=== PATIENT | male | born 1965 | race Caucasian/White ===

== ENCOUNTER 2020-09-17 10:17 | Outpatient (REF) | payer OTHER, SELFPAY ==
[2020-09-17 11:35] LABS: MANUAL DIFF FLAG NO
[2020-09-17 11:44] LABS: Basophils Percent Auto 0.5 % (0-2); Eosinophils Absolute Auto 0.2 X10*3/uL (0.0-0.4); Eosinophils Percent Auto 3.5 % (0-4); Hematocrit 43.3 % (42-52); Hemoglobin 14.7 g/dl (14.0-18.0); Imm Gran Abs Auto 0.02 X10*3/uL (0.00-0.03); Imm Gran Pct Auto 0.3 % (0.0-0.4); Lymphocytes Absolute Auto 1.6 X10*3/uL (1.2-4.9); Lymphocytes Percent Auto 26.6 % (20-40); Mean Corpuscular HGB Conc 33.9 g/dl (31.0-36.0); Mean Corpuscular Hemoglobin 30.4 pg (27.0-33.0); Mean Corpuscular Volume 89.6 fL (80-98); Mean Platelet Volume 10.3 fL (9.4-12.4); Monocytes Absolute Auto 0.4 X10*3/uL (0.1-1.2); Monocytes Percent Auto 6.9 % (2-11); Neutrophils Absolute Auto 3.7 X10*3/uL (2.0-8.3); Neutrophils Percent Auto 62.2 % (45-73); Platelet Count 299 X10*3/uL (160-400); Red Blood Count 4.83 X10*6/uL (4.60-5.80); Red Cell Distribution Width 12.2 % (11.0-16.0)
[2020-09-17 12:10] LABS: Alanine Aminotransferase 23 U/L (0-40); Albumin Level 4.2 g/dL (3.5-5.0); Alkaline Phosphatase 74 U/L (39-117); Anion Gap 13 (12-20); Aspartate Amino Transferase 19 U/L (5-37); Bilirubin Total 0.8 mg/dL (0.0-1.0); Blood Urea Nitrogen 14 mg/dL (9-16); Calcium 9.4 mg/dL (8.4-10.2); Carbon Dioxide 25 mmol/L (22-29); Chloride 107 mmol/L (96-108); Cholesterol 247 mg/dL; Estimated Glomerular Filt Rate > 60; Glucose Fasting 91 mg/dL (60-99); HDL Cholesterol 49 mg/dL; LDL Cholesterol Calculated 182 mg/dl; Potassium 5.2 mmol/L (3.3-5.1); Sodium 140 mmol/L (135-145); Total Protein 6.5 g/dL (6.5-8.0); Triglycerides 84 mg/dL
[2020-09-17 12:15] LABS: Thyroid Stimulating Hormone 0.71 uIU/mL (0.32-4.0)
== END 2020-09-17 10:18 | disposition home or self-care (01) ==
LOC: HO.HMGCLDS 10:17
PROVIDERS: PCP Internal Medicine; Visit Provider Internal Medicine
DX: Z00.00 Encounter for general adult medical examination without abnormal findings (principal); E11.9 Type 2 diabetes mellitus without complications; E03.9 Hypothyroidism, unspecified
CPT/HCPCS: 36415; 80053; 80061; 84443; 85025

== ENCOUNTER 2021-08-21 08:50 | Outpatient (REF) | payer OTHER, SELFPAY ==
[2021-08-21 09:06] LABS: MANUAL DIFF FLAG NO
[2021-08-21 09:22] LABS: Basophils Percent Auto 0.3 % (0-2); Eosinophils Absolute Auto 0.1 X10*3/uL (0.0-0.4); Eosinophils Percent Auto 1.6 % (0-4); Hematocrit 43.8 % (42.0-52.0); Hemoglobin 14.7 g/dl (14.0-18.0); Imm Gran Abs Auto 0.03 X10*3/uL (0.00-0.03); Imm Gran Pct Auto 0.4 % (0.0-0.4); Lymphocytes Absolute Auto 1.6 X10*3/uL (1.2-4.9); Lymphocytes Percent Auto 22.5 % (20-40); Mean Corpuscular HGB Conc 33.6 g/dl (31.0-36.0); Mean Corpuscular Hemoglobin 30.4 pg (27.0-33.0); Mean Corpuscular Volume 90.5 fL (80.0-98.0); Monocytes Absolute Auto 0.4 X10*3/uL (0.1-1.2); Monocytes Percent Auto 6.3 % (2-11); Neutrophils Absolute Auto 4.8 x10*3/uL (2.0-8.3); Neutrophils Percent Auto 68.9 % (45-73); Platelet Count 284 X10*3/uL (160-400); Red Blood Count 4.84 X10*6/uL (4.60-5.80); Red Cell Distribution Width 12.2 % (11.0-16.0)
[2021-08-21 09:48] LABS: Alanine Aminotransferase 22 U/L (0-40); Albumin Level 4.1 g/dL (3.5-5.0); Alkaline Phosphatase 50 U/L (39-117); Anion Gap 12 (12-20); Aspartate Amino Transferase 13 U/L (5-37); Bilirubin Total 0.5 mg/dL (0.0-1.0); Blood Urea Nitrogen 17 mg/dL (9-16); Calcium 9.4 mg/dL (8.4-10.2); Carbon Dioxide 27 mmol/L (22-29); Chloride 105 mmol/L (96-108); Cholesterol 229 mg/dL; Estimated Glomerular Filt Rate > 60; Glucose Fasting 93 mg/dL (60-99); HDL Cholesterol 57 mg/dL; LDL Cholesterol Calculated 154 mg/dl; Potassium 4.2 mmol/L (3.3-5.1); Sodium 140 mmol/L (135-145); Total Protein 6.4 g/dL (6.5-8.0); Triglycerides 94 mg/dL
== END 2021-08-21 08:51 | disposition home or self-care (01) ==
LOC: HO.LAB 08:50
PROVIDERS: PCP Internal Medicine; Visit Provider Internal Medicine
DX: Z00.00 Encounter for general adult medical examination without abnormal findings (principal); Z13.0 Encounter for screening for diseases of the blood and blood-forming organs and certain disorders involving the immune mechanism
CPT/HCPCS: 36415; 80053; 80061; 85025

== ENCOUNTER 2022-11-12 15:23 | Outpatient (REF) | payer BC, SELFPAY | END 2022-11-12 15:24 | disposition home or self-care (01) | LOC: HO.SH 15:23 | PROVIDERS: Visit Provider Internal Medicine | DX: Z01.118 Encounter for examination of ears and hearing with other abnormal findings (principal); H90.3 Sensorineural hearing loss, bilateral | CPT/HCPCS: 92557 ==

== ENCOUNTER 2023-03-26 11:40 | Outpatient (REF) | payer BC, SELFPAY ==
[2023-03-26 11:48] LABS: MANUAL DIFF FLAG NO
[2023-03-26 12:10] LABS: Basophils Absolute Auto 0.1 X10*3/uL (0.0-0.2); Basophils Percent Auto 0.8 % (0-2); Eosinophils Absolute Auto 0.6 X10*3/uL (0.0-0.4); Eosinophils Percent Auto 7.8 % (0-4); Hemoglobin 15.8 g/dl (14.0-18.0); Imm Gran Abs Auto 0.02 X10*3/uL (0.00-0.03); Imm Gran Pct Auto 0.3 % (0.0-0.4); Lymphocytes Absolute Auto 1.6 X10*3/uL (1.2-4.9); Lymphocytes Percent Auto 21.1 % (20-40); Mean Corpuscular HGB Conc 34.3 g/dl (31.0-36.0); Mean Corpuscular Hemoglobin 30.7 pg (27.0-33.0); Mean Corpuscular Volume 89.3 fL (80.0-98.0); Mean Platelet Volume 10.3 fL (9.4-12.4); Monocytes Absolute Auto 0.5 X10*3/uL (0.1-1.2); Monocytes Percent Auto 6.8 % (2-11); Neutrophils Absolute Auto 4.6 x10*3/uL (2.0-8.3); Neutrophils Percent Auto 63.2 % (45-73); Platelet Count 287 X10*3/uL (160-400); Red Blood Count 5.15 X10*6/uL (4.60-5.80); Red Cell Distribution Width 12.1 % (11.0-16.0); White Blood Count 7.3 X10*3/uL (4.8-10.8)
[2023-03-26 12:49] LABS: Alanine Aminotransferase 30 U/L (0-40); Albumin Level 4.3 g/dL (3.5-5.0); Alkaline Phosphatase 70 U/L (39-117); Anion Gap 12 (12-20); Aspartate Amino Transferase 22 U/L (5-37); Bilirubin Total 0.8 mg/dL (0.0-1.0); Blood Urea Nitrogen 16 mg/dL (9-16); Calcium 9.4 mg/dL (8.4-10.2); Carbon Dioxide 27 mmol/L (22-29); Chloride 105 mmol/L (96-108); Cholesterol 289 mg/dL (<200); Estimated Glomerular Filt Rate > 60; Glucose Fasting 96 mg/dL (60-99); HDL Cholesterol 60 mg/dL (>40); LDL Cholesterol Calculated 198 mg/dL (<100); Potassium 4.7 mmol/L (3.3-5.1); Sodium 139 mmol/L (135-145); Total Protein 7.3 g/dL (6.5-8.0); Triglycerides 158 mg/dL (<150)
[2023-03-26 13:07] LABS: Thyroid Stimulating Hormone 1.01 uIU/mL (0.32-4.0)
== END 2023-03-26 11:41 | disposition home or self-care (01) ==
LOC: HO.LAB 11:40
PROVIDERS: PCP Internal Medicine; Visit Provider Internal Medicine
DX: E03.9 Hypothyroidism, unspecified (principal); N28.9 Disorder of kidney and ureter, unspecified; D64.9 Anemia, unspecified; E78.5 Hyperlipidemia, unspecified
CPT/HCPCS: 36415; 80053; 80061; 84443; 85025

== ENCOUNTER 2023-12-24 13:01 | Outpatient (AMB) | payer BC, SELFPAY ==
[2023-12-24 13:03] VITALS: BP 148/88; PULSE 89; O2SAT 94; BMI 32.0
--- NOTE | 2023-12-24 13:03 | A.OFFPC_ITS ---
Vital Signs 12/24/23 13:03 Height 5 ft 9 in Weight 217 lb BMI 32.0 BP 148/88 H Blood Pressure Location Lt brachial Position Sitting Pulse 89 Pulse Source Pulse Oximeter Pulse Oximetry (%) 94 Oxygen Delivery Method Room Air Intake Visit Reasons: annual exam/ high bp Assurance Associate Required: No Accompanied by: Self / Same As Patient Allergies No Known Allergies Allergy (Verified 12/24/23 13:04) Medication List - Last Reconciled 12/24/23 by Kt Cardoza MD prednisolone acetate 1% 1 drp ophthalmic-Right Q2H Tobacco use date assessed: 12/24/23 Dental Screening Dental Screen Date: 12/24/23 Did you have a dental visit in the last 12 months?: No Did you have a dental problem in the last 6 months where you did not have access to dental care?: No Was dental information given to patient?: Patient has dentist HPI annual exam/ high bp HPI Details elevated BP PFSH Medical History (Updated 12/24/23 @ 13:24 by Kt Cardoza MD) Obesity Surgical History (Updated 08/26/21 @ 14:22 by ALEX Dawson) History of hernia surgery History of eye surgery Family History (Updated 08/26/21 @ 14:15 by ALEX Dawson) Father Colon cancer Mother No problems noted. Social History Housing: House Alcohol intake: current Alcohol intake frequency: a few times a week Alcohol type: beer Patient Tobacco Use Status: Never used Tobacco Tobacco use type: Cigarette e-Cigarette/Vaping Use: Never Used Second Hand Smoke Exposure: No service: No Current occupational status: employed Cognitive needs: No Hearing needs: No Vision needs: No Questionnaire PHQ-9 Over the last 2 weeks, how often have you been bothered by any of the following problems? 1. Little interest or pleasure in doing things: not at all 2. Feeling down, depressed, or hopeless: not at all 3. Trouble falling or staying asleep, or sleeping too much: not at all 4. Feeling tired or having little energy: several days 5. Poor appetite or overeating: not at all 6. Feeling bad about yourself - or that you are a failure or have let yourself or your family down: not at all 7. Trouble concentrating on things, such as reading the newspaper or watching television: not at all 8. Moving or speaking so slowly that other people could have noticed. Or the op posite - being so fidgety or restless that you have been moving around a lot more than usual: not at all 9. Thoughts that you would be better off or of hurting yourself in some way: not at all Total score: 1 Source: Developed by Drs. Elias Sarabia, Dania Elam, Saurabh Granados and colleagues, with an educational jose from [employer]. Thrive Questionnaire Date Thrive assessed: 12/24/23 I am a: Patient What is your living situation today?: I have a steady place to live Within the past 12 months, did the food you bought not last and you didn't have the money to get more?: Never true Within the past 12 months, did you worry whether your food would run out before you got money to buy more?: Never true Do you have trouble paying for medicines?: No Do you have trouble getting transportation to medical appointments?: No Do you have trouble paying your heating and electricity bill?: No Do you have trouble taking care of your child, family member or friend?: No Do you have trouble with day-to-day activities such as bathing, preparing meals, shopping, managing finances, etc.?: No Are you currently unemployed and looking for a job?: No Are you interested in more education?: No Please select the resources that you would like help with: None Currently or been in a relationship where the following occur: No concerns reported THRIVE Score: 0 AUDIT C Alcohol Use Questionnaire (AUDIT-C) 1. How often do you have a drink containing alcohol?: 2-3 times a week 2. How many drinks containing alcohol do you have on a typical day when you are drinking?: 1 or 2 3. How often do you have six or more drinks on one occasion?: Never Total Score: 3 ROCK-7 AMB Questionnaire ROCK-7 Date ROCK - 7 assessed: 12/24/23 Feeling nervous, anxious, or on edge: 0 = Not at all Not being able to stop or control worryin = Not at all Worrying too much about different things: 0 = Not at all Trouble relaxin = Not at all Being so restless that it is hard to sit still: 0 = Not at all Becoming easily annoyed or irritable: 0 = Not at all Feeling afraid as if something awful might happen: 0 = Not at all Total ROCK-7 score (0-4 normal; 5-9 mild; 10-14 moderate; 15-21 severe): 0 Source: Developed by Drs. Elias Sarabia, Dania Elam, Saurabh Granados and colleagues, with an educational jose from [employer]. Review of Systems Const Denies chills, Denies fatigue, Denies headache(s) and Denies weight loss Eyes Denies change in vision, Denies diplopia and Denies eye pain ENT Denies vertigo, Denies dizziness, Denies headache(s) and Denies nasal discharge Card Denies chest pain, Denies rapid heart rate and Denies dyspnea on exertion Resp Denies chest congestion, Denies cough, Denies pain with cough and Denies dyspnea on exertion GI Denies abdominal pain, Denies hematochezia and Denies change in bowel habits Musc Denies myalgias, Denies arthralgias and Denies joint swelling Skin/Breast Denies lesions and Denies unusual bruising Neuro Denies vertigo, Denies dizziness, Denies headache(s) and Denies focal weakness Endo Denies fatigue Physical exam (Primary Care) Vital Signs: Last Vital Signs Pulse 89 12/24/23 13:03 BP 148/88 H 12/24/23 13:03 Pulse Ox 94 12/24/23 13:03 Oxygen Delivery Method Room Air 12/24/23 13:03 BMI result Body Mass Index 32.0 Tobacco/Smoking Status: Tobacco use Status Tobacco use date assessed 12/24/23 12/24/23 13:08 Patient Tobacco Use Status Never used Tobacco 12/24/23 13:08 Tobacco use type Cigarette 12/24/23 13:08 e-Cigarette/Vaping Use Never Used 12/24/23 13:08 PHQ-9: PHQ-9 Score PHQ-9: Total score 1 12/24/23 13:09 Thrive Assessment: Date of Thrive Assessment Date Thrive assessed 12/24/23 12/24/23 13:08 Currently or been in a relationship where the following occur: No concerns reported Const General: cooperative, healthy appearing and no acute distress Orientation/consciousness: oriented to person, oriented to place and oriented to time HENMT Head: Yes normal to inspection, Yes normocephalic and Yes atraumatic Mouth: Normal oral and palatal mucosa present and tongue normal Throat: Yes posterior oropharynx normal and Yes uvula midline Eyes General: appearance normal, both eyes and all related structures Neck Neck: Yes normal visual inspection, Yes full ROM and Yes no lymphadenopathy Thyroid: Thyroid normal Carotids: normal carotid upstroke Chest Chest palpation & inspection: normal inspection of the chest Resp Effort & Inspection: normal respiratory effort and able to speak in complete sentences Auscultation: clear to auscultation bilaterally Cardio Jugular venous distension: no JVD Palpation: normal PMI Rate: regular rate Rhythm: regular rhythm Heart sounds: S1 normal heart sound present and S2 normal heart sound present GI Inspection: Yes normal to inspection Palpation (GI): Soft to palpation and No hepatosplenomegaly present Auscultation: normal bowel sounds General: Yes no CVA tenderness Back/Spine/Pelvis Back: no CVA tenderness Skin General skin exam: no rashes or lesions noted Neuro General: oriented to person, oriented to place and oriented to time Extrem General: Yes normal to inspection and Yes full ROM Assessment and Plan Assessment & Plan (1) Physical exam: Code(s): Z00.00 - Encounter for general adult medical examination without abnormal findings Plan: labs (2) Elevated BP without diagnosis of hypertension: Code(s): R03.0 - Elevated blood-pressure reading, without diagnosis of hypertension Plan: low Na diet; rto 2 months Orders: Orders Lipid Panel Today Z13.220 - Encounter for screening for lipoid disorders Thyroid Stimulating Hormone Today Z13.29 - Encounter for screening for other suspected endocrine disorder Complete Blood Count Auto Diff Today Z13.0 - Encounter for screening for diseases of the blood and blood-forming organs and certain disorders involving the immune mechanism Comprehensive [place]. Panel Fast Today Z13.9 - Encounter for screening, unspecified XR chest 2V Today R09.02 - Hypoxemia Referrals Gastroenterology Referral Z12.11 - Encounter for screening for malignant neoplasm of colon Coding Level of Care Code Est Pt Prev Care 40-64y(58965) Diagnoses Physical exam Z00.00 Elevated BP without diagnosis of hypertension R03.0
== END 2023-12-24 13:24 | disposition home or self-care (01) ==
PROVIDERS: PCP Internal Medicine; Visit Provider Internal Medicine
DX: Z00.00 Encounter for general adult medical examination without abnormal findings (principal); R03.0 Elevated blood-pressure reading, without diagnosis of hypertension

== ENCOUNTER → 2023-12-24 13:01 | Outpatient (BNVA) | payer BC, SELFPAY | PROVIDERS: PCP Internal Medicine; Visit Provider Internal Medicine | DX: Z00.01 Encounter for general adult medical examination with abnormal findings (principal); R03.0 Elevated blood-pressure reading, without diagnosis of hypertension | CPT/HCPCS: 96127 ==

== ENCOUNTER 2024-02-10 09:35 | Outpatient (REF) | payer BC, SELFPAY ==
[2024-02-10 09:56] LABS: MANUAL DIFF FLAG NO
[2024-02-10 10:24] LABS: Basophils Absolute Auto 0.1 X10*3/uL (0.0-0.2); Basophils Percent Auto 0.8 % (0-2); Eosinophils Absolute Auto 0.4 X10*3/uL (0.0-0.4); Eosinophils Percent Auto 4.8 % (0-4); Hematocrit 44.7 % (42.0-52.0); Hemoglobin 15.4 g/dl (14.0-18.0); Imm Gran Abs Auto 0.02 X10*3/uL (0.00-0.03); Imm Gran Pct Auto 0.3 % (0.0-0.4); Lymphocytes Absolute Auto 1.5 X10*3/uL (1.2-4.9); Lymphocytes Percent Auto 20.5 % (20-40); Mean Corpuscular HGB Conc 34.5 g/dl (31.0-36.0); Mean Corpuscular Hemoglobin 30.8 pg (27.0-33.0); Mean Corpuscular Volume 89.4 fL (80.0-98.0); Mean Platelet Volume 10.2 fL (9.4-12.4); Monocytes Absolute Auto 0.5 X10*3/uL (0.1-1.2); Monocytes Percent Auto 6.9 % (2-11); Neutrophils Absolute Auto 4.9 x10*3/uL (2.0-8.3); Neutrophils Percent Auto 66.7 % (45-73); Platelet Count 266 X10*3/uL (160-400); Red Cell Distribution Width 12.4 % (11.0-16.0); White Blood Count 7.3 X10*3/uL (4.8-10.8)
[2024-02-10 10:57] LABS: Alanine Aminotransferase 31 U/L (0-40); Albumin Level 4.2 g/dL (3.5-5.0); Alkaline Phosphatase 68 U/L (39-117); Anion Gap 10 (12-20); Aspartate Amino Transferase 23 U/L (5-37); Bilirubin Total 0.6 mg/dL (0.0-1.0); Blood Urea Nitrogen 12 mg/dL (9-16); Calcium 8.9 mg/dL (8.4-10.2); Carbon Dioxide 28 mmol/L (22-29); Chloride 106 mmol/L (96-108); Cholesterol 252 mg/dL (<200); Estimated Glomerular Filt Rate > 60; Glucose Fasting 101 mg/dL (60-99); HDL Cholesterol 48 mg/dL (>40); LDL Cholesterol Calculated 173 mg/dL (<100); Potassium 4.4 mmol/L (3.3-5.1); Sodium 140 mmol/L (135-145); Total Protein 6.7 g/dL (6.5-8.0); Triglycerides 158 mg/dL (<150)
[2024-02-10 11:06] LABS: Thyroid Stimulating Hormone 1.03 uIU/mL (0.32-4.0)
== END 2024-02-10 09:36 | disposition home or self-care (01) ==
LOC: HO.XRAY 09:35
PROVIDERS: PCP Internal Medicine; Visit Provider Internal Medicine
DX: Z13.0 Encounter for screening for diseases of the blood and blood-forming organs and certain disorders involving the immune mechanism (principal); Z13.29 Encounter for screening for other suspected endocrine disorder; Z13.9 Encounter for screening, unspecified; Z13.220 Encounter for screening for lipoid disorders; R09.02 Hypoxemia
CPT/HCPCS: 36415; 71046; 80053; 80061; 84443; 85025

== ENCOUNTER 2024-03-06 09:58 | Outpatient (AMB) | payer BC, SELFPAY ==
--- NOTE | 2024-03-06 09:58 | A.OFFPC_ITS ---
Vital Signs 03/06/24 09:59 Height 5 ft 9 in Weight 214 lb BMI 31.6 BP 158/98 H Blood Pressure Location Lt brachial Position Sitting Pulse 88 Pulse Source Pulse Oximeter Pulse Oximetry (%) 98 Oxygen Delivery Method Room Air Intake Visit Reasons: [id number]/14/24 Allergies No Known Allergies Allergy (Verified 03/06/24 09:59) Medication List - Last Reconciled 03/07/24 by Kt Cardoza MD prednisolone acetate 1% 1 drp ophthalmic-Right Q2H Tobacco use date assessed: 12/24/23 Dental Screening Dental Screen Date: 12/24/23 HPI [id number]/14/24 HPI Details continues with elevated BP but refuses rx PFSH Medical History (Updated 12/24/23 @ 13:24 by Kt Cardoza MD) Obesity Surgical History (Updated 08/26/21 @ 14:22 by ALEX Dawson) History of hernia surgery History of eye surgery Family History (Updated 08/26/21 @ 14:15 by ALEX Dawson) Father Colon cancer Mother No problems noted. Social History Housing: House Alcohol intake: current Alcohol intake frequency: a few times a week Alcohol type: beer Patient Tobacco Use Status: Never used Tobacco Tobacco use type: Cigarette e-Cigarette/Vaping Use: Never Used Second Hand Smoke Exposure: No service: No Current occupational status: employed Cognitive needs: No Hearing needs: No Vision needs: Yes Questionnaire Thrive Questionnaire Date Thrive assessed: 12/24/23 ROCK-7 AMB Questionnaire ROCK-7 Date ROCK - 7 assessed: 12/24/23 Source: Developed by Drs. Elias Sarabia, Dania Elam, Saurabh Granados and colleagues, with an educational jose from [employer]. Review of Systems Const Denies chills, Denies headache(s) and Denies weight loss ENT Denies headache(s) Card Denies chest pain, Denies syncope, Denies irregular heart rhythm and Denies dyspnea Resp Denies chest congestion, Denies cough and Denies dyspnea GI Denies abdominal pain, Denies change in stool character, Denies nausea and Denies vomiting Musc Denies deformity and Denies joint swelling Neuro Denies syncope and Denies headache(s) Physical exam (Primary Care) Vital Signs: Last Vital Signs Pulse 88 03/06/24 09:59 BP 158/98 H 03/06/24 09:59 Pulse Ox 98 03/06/24 09:59 Oxygen Delivery Method Room Air 03/06/24 09:59 BMI result Body Mass Index 31.6 Tobacco/Smoking Status: Tobacco use Status Tobacco use date assessed 12/24/23 03/06/24 10:02 Patient Tobacco Use Status Never used Tobacco 03/06/24 10:02 Tobacco use type Cigarette 03/06/24 10:02 e-Cigarette/Vaping Use Never Used 03/06/24 10:02 Thrive Assessment: Date of Thrive Assessment Date Thrive assessed 12/24/23 03/06/24 10:02 Const General: cooperative, comfortable, no acute distress and alert Neck Neck: Yes no lymphadenopathy Thyroid: Thyroid normal Resp Effort & Inspection: normal respiratory effort Auscultation: clear to auscultation bilaterally Percussion: percussion normal Cardio Jugular venous distension: no JVD Palpation: normal PMI Rate: regular rate Rhythm: regular rhythm Heart sounds: S1 normal heart sound present and S2 normal heart sound present GI Inspection: Yes normal to inspection Palpation (GI): No hepatosplenomegaly present Skin General skin exam: no rashes or lesions noted Extrem General: Yes no clubbing, cyanosis or edema Coding Level of Care Code Est Pt Level 3 (54842) Diagnoses Elevated BP without diagnosis of hypertension R03.0 Assessment & Plan Assessment & Plan (1) Elevated BP without diagnosis of hypertension: Code(s): R03.0 - Elevated blood-pressure reading, without diagnosis of hypertension Category: Medical Plan: weight loss, low Na diet Orders: Orders Lyme IgG/IgM w/reflex to WB 03/06/24 W57.XXXA - Bitten or stung by nonvenomous insect and other nonvenomous arthropods, initial encounter
[2024-03-06 09:59] VITALS: BP 158/98; PULSE 88; O2SAT 98; BMI 31.6
--- OUTSIDE RECORDS SUMMARY | 2024-03-08 14:17 | XMS_ITS | Patient Health Record ---
Author Organization [facility] Address [address] [place] [address] Care Team Providers Care Take Off Worker Name Role Phone Kt Cardoza MD Primary Care Provider Alannaa Elias Adams Unavailable [phone] REASON FOR REFERRAL No Information MEDICATIONS Medication SIG (Take, Route, Fr equency, Duration) Notes Start Date End Date Status MoviPrep 100 GM as directed Orally a s directed for 1 dose 03/15/2014 Active SOCIAL HISTORY Sex Assigned At : Social History Observation Description Sex Assigned At Unknown PROBLEMS Problem Type ICD Code Onset Dates Problem Status W/U Status Risk SNOMED Code Notes Problem Family history of colorectal cancer (V16.0) Active confirmed Family histor y of colorectal cancer (8376109545547 ) Problem Colon cancer screening (V76.51) Active confirmed Colon cancer screening (818382523) Problem Other specified pre-operative examination (V72.83) Active confirmed Pre-surgery evaluation (601106115) PLAN OF TREATMENT Future Test Test Name Order Date COLONOSCOPY 03/15/2014 Insurance Providers Payer Name Payer Address Payer Phone Subscriber Number Group Number Insured Name Patient Relationship to Insured Coverage Start Date Coverage End Date [facility] [address] [place], [place] [phone] [id number] FRANCIE KIM Self - patient is the insured MEDICAL (GENERAL) HISTORY Medical History History ICD Code Denies CO,DM,CVA,Lung disease,renal dise ase Reports negative colonoscopy in approx. 06/1998--neg small bowel series Surgical History Surgery Date(Month/Year) Hernia repair-right inguinal-Dr. Babin 20 14 deviated septum repair
--- OUTSIDE RECORDS SUMMARY | 2024-03-08 14:17 | XMS_ITS | Continuity of Care Document ---
Author Organization [facility] Address [address] [place] [address] Phone Care Team Providers Care Strap Machine Operator Name Role Phone Oraeldorfer OD, Mickey Unavailable Unavailable Allergies, Adverse Reactions, Alerts Substance Reaction Status Criticality No Known Allergies Active No Inform ation Medications Medication Instructions Dosage Effective Dates (start - stop) Status Comments Ambien 5 mg tablet - Active Benadryl 25 mg capsule - Active meloxicam 7.5 mg tablet Take 1 tablet every day - Active Procedures Procedure Date Refraction EST. Routine Exam Comprehensive 024 Refraction EST. Routine Exam Comprehensive 023 Refraction EST. Routine Exam Comprehensive 021 Refraction EST. Routine Exam Comprehensive 020 Refraction EST. Routine Exam Comprehensive 019 Refraction EST. Routine Exam Comprehensive 017 Anti-reflective Coating Per Le Allure No Anti-reflective Coating Per Le Allure No Refraction EST. Routine Exam Comprehensive 016 Refraction EST. Routine Exam Comprehensive 015 EST. Routine Exam Comprehensive 013 Refraction Advance Directives Directive Yes / No Effective Date File Name No Information Encounters Encounter Description Practice Location Reason(s) For Visit Diagnoses Date Provider Providers Copied on Encounter [facility], [address], [place], [place], [id number] , [place] tel: [phone] [facility] No Information 4 Zack OD Mickey. [address], [place], [address], [place]. tel:[phone] Referring Provider: Mickey Dixon OD, [address], [place], [address]. tel:[phone] [facility], [address], [place], [place], [address] , [place] tel: [phone] [facility] routine eye exam (chief complaint) Encounter for exam of eyes and vision w abnormal findingsPresby opia 4 Zack OD Mickey. [address], [place], [address], [place]. tel:[phone] Referring Provider: Mickey Dixon OD, [address], [place], [address]. tel:[phone] [facility], [address], [place], [place], [id number] , [place] tel:[phone] [facility] routine exam (chief complaint) Encounter for exam of eyes and vision w abnormal findingsPresby opia 3 Zack OD Mickey. [address], [place], [address], [place]. tel:[phone] Referring Provider: Mickey Dixon OD, [address], [place], [address]. tel:[phone] [facility], [address], [place], [place], [address] , [place] tel:[phone] [facility] routine exam (chief complaint) Encounter for exam of eyes and vision w abnormal findingsPresby opia 1 Zack OD Mickey. [address], [place], [address], [place]. tel:[phone] Referring Provider: Mickey Dixon OD, [address], [place], [address]. tel:[phone] [facility], [address], [place], [place], [address] , [place] tel:[phone] [facility] routine exam (chief complaint) Encounter for exam of eyes and vision w abnormal findingsPresby opia [phone] 0 Zack OD Mickey. [address], [place], [address], [place]. tel:[phone] Referring Provider: Mickey Dixon OD, [address], [place], [address]. tel:[phone] [facility], [address], [place], [place], [address] , [place] tel:[phone] [facility] routine exam (chief complaint) Encounter for exam of eyes and vision w abnormal findingsPresby opia 9 Zack OD Mickey. [address], [place], [address], [place]. tel:[phone] Referring Provider: Mikcey Dixon OD, [address], [place], [address]. tel:[phone] [facility], [address], [place], [place], [address] , [place] tel:[phone] [facility] No Information 9 Zack OD Mickey. [address], [place], [address], [place]. tel:[phone] Referring Provider: Mickey Dixon OD, [address], [place], [address]. tel:[phone] [facility], [address], [place], [place], [address] , [place] tel:[phone] [facility] routine exam (chief complaint) Encounter for exam of eyes and vision w abnormal findingsPresby opia [phone] 7 Zack OD Mickey. [address], [place], [address], [place]. tel:[phone] Referring Provider: Mickey Dixon OD, [address], [place], [address]. tel:[phone] [facility], [address], [place], [place], [address] , [place] tel:[phone] [facility] No Information 7 Oravijaya OD Mickey. [address], [place], [address], [place]. tel:[phone] Referring Provider: Mickey Dixon OD, [address], [place], [address]. tel:[phone] [facility], [address], [place], [place], [address] , [place] tel:[phone] [facility] routine exam (chief complaint) Encounter for exam of eyes and vision w abnormal findingsPresby opia 6 Pranulis OD Xiao. [address], [place], [address], [place]. tel:[phone] Referring Provider: Xiao Garrettcharbeljayden OD, [address], [place], [address]. tel:[phone] [facility], [address], [place], [place], [address] , [place] tel:[phone] [facility] routine exam (chief complaint) Eye & Vision Examination 5 Nicks OD Xiao. [address], [place], [address], [place]. tel:[phone] Referring Provider: Xiao Garrettcharbeljayden OD, [address], [place], [address]. tel:[phone] [facility], [address], [place], [place], [address] , [place] tel:[phone] [facility] Eye & Vision Examination 3 Oravijaya OD Mickey. [address], [place], [address], [place]. tel:[phone] Referring Provider: Mickey Dixon OD, [address], [place], [address]. tel:[phone] Family History Family Member Type Diagnosis Age At Onset Mother Problem (finding) diabetes omari toshias in first degree relative Payers Payer name Insurance type Covered constitution party ID Authoriza tion(s) No Information Social History Type Description Quantity Date Captured Comments Sex Male Smoking Status No Information Chief Complaint And Reason For Visit No Information Reason For Referral Reason For Referral No Information History Of Present Illness Encounter Date Complaint History Of Prese nt Illness routine eye exam The 58 year old male presents for routine eye exam in both eyes. Patient last examined a year ago and wears glasses only; an occupational bifocal.Patient feels things are stable, eyes feel fine. routine exam The 57 year old male presents for routine exam. Patient reports vision fairly stable for most daily activity and chores. routine exam The 56 year old male presents for routine exam. Patient was last examined over a year ago and feels things are overall stable since last visit. Eyes feel okay as well.He notes at times having issues seeing things on store shelves. routine exam The 54 year old male presents for routine exam in the both eyes. Patient was last examined about a year ago and feels things are stable and eyes are feeling fine. routine exam The 53 year old male presents for routine exam in both eyes. Patient was last examined about a year and a half ago and notes vision to be stable since last visit. He uses no drops and has no complaints. routine exam The 52 year old male presents for routine exam in both eyes. Patient reports gradual decrease in both distance and near vision for the left eye affecting daily activity and chores. routine exam The 50 year old male presents for routine yearly exam in both eyes. Patient says he has been struggling with seeing well in low light. He says he has always had some difficulty with driving at night. 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 He has also noticed that he needs lots of light to read as well. Symptom(s) affect both near and far vision. The condition is worsening. routine exam The 49 year old male presents for routine exam in both eyes. Patient reports decreased vision. It started about 1 year(s) ago. Symptom(s) affect both near and far vision. The condition is significant. Patient denies flashes, floaters and glare. Patient states vision just isn't as clear. Functional Status Date Functional Assessmen t No Information Instructions Date Instruction Additional Infor miriam Presbyopia, OU Related to Presb yopia Encounter for examin ation of eyes and vision with abnormal findings, - SRx out today Related to Encounter for examination of eyes and vision with abnormal findings Presbyopia, OU Related to Presb yopia Encounter for examin ation of eyes and vision with abnormal findings, - Srx out today Related to Encounter for examination of eyes and vision with abnormal findings Presbyopia, OU Related to Presb yopia Encounter for examin ation of eyes and vision with abnormal findings, - Srx out today Related to Encounter for examination of eyes and vision with abnormal findings Presbyopia, OU Related to Presb yopia Encounter for examin ation of eyes and vision with abnormal findings, - Pt ed, srx out today Related to Encounter for examination of eyes and vision with abnormal findings Presbyopia, OU Related to Presb yopia Encounter for examin ation of eyes and vision with abnormal findings, - Pt ed, srx out today. Related to Encounter for examination of eyes and vision with abnormal findings Presbyopia, OU Related to Presb yopia Encounter for examin ation of eyes and vision with abnormal findings, - Pt ed, srx out today. Related to Encounter for examination of eyes and vision with abnormal findings Presbyopia, OU Related to Presb yopia Encounter for examin ation of eyes and vision with abnormal findings, - Discussed diagnosis in detail with patient. New glasses Rx was given today. Related to Encounter for examination of eyes and vision with abnormal findings Routine Exam, OU - D iscussed diagnosis in detail with patient. New glasses Rx was given today. Related to Routine Exam - 1 yr te Related to Routi ne Examination Routine Examination, OU - Pt ed, srx out today. Related to Routine Examination Assessments Type Assessment Date No Information Patient Care Teams Name Effective Dates (start - stop) Status Members No Information
--- OUTSIDE RECORDS SUMMARY | 2024-03-08 14:19 | XMS_ITS | Continuity of Care Document ---
Author Organization [facility] Address [address] [place] [address] Phone Care Team Providers Care Video Systems Engineer Name Role Phone Oraeldorfer OD, Mickey Unavailable [...] Diagnoses Date Provider Providers Copied on Encounter [facility], [address], [place], [place], [address] , [place] tel: [phone] [facility] No Information 4 Zack OD Mickey. [address], [place], [address], [place]. tel:[phone] Referring Provider: Mickey Dixon OD, [address], [place], [address]. tel:[phone] [facility], [address], [place], [place], [address] , [place] tel: [phone] [facility] routine eye exam (chief complaint) Encounter for exam of eyes and vision w abnormal findingsPresby opia 4 Zack OD Mickey. [address], [place], [address], [place]. tel:[phone] Referring Provider: Mickey Dixon OD, [address], [place], [address]. tel:[phone] [facility], [address], [place], [place], [address] , [place] tel:[phone] [facility] routine exam (chief complaint) Encounter for exam of eyes and vision w abnormal findingsPresby opia 3 Zack OD Mickey. [address], [place], [address], [place]. tel:[phone] Referring Provider: Mickey Dixon OD, [address], [place], [address]. tel:[phone] [facility], [address], [place], [place], [address] , [place] tel:[phone] [facility] routine exam (chief complaint) Encounter for exam of eyes and vision w abnormal findingsPresby opia 1 Zack OD Mickey. [address], [place], [address], [place]. tel:[phone] Referring Provider: Mickey Dixon OD, [address], [place], [address]. tel:[phone] [facility], [address], [place], [place], [address] , [place] tel:[phone] [facility] routine exam (chief complaint) Encounter for exam of eyes and vision w abnormal findingsPresby opia [phone] 0 Zack OD Mickey. [address], [place], [address], [place]. tel:[phone] Referring Provider: Mickey Dixon OD, [address], [place], [address]. tel:[phone] [facility], [address], [place], [place], [address] , [place] tel:[phone] [facility] routine exam (chief complaint) Encounter for exam of eyes and vision w abnormal findingsPresby opia 9 Zack OD Mickey. [address], [place], [address], [place]. tel:[phone] Referring Provider: Mickey Dixon OD, [address], [place], [address]. tel:[phone] [facility], [address], [place], [place], [address] , [place] tel:[phone] [facility] No Information 9 Zack OD Mickey. [address], [place], [address], [place]. tel:[phone] Referring Provider: Mickey Dixon OD, [address], [place], [address]. tel:[phone] [facility], [address], [place], [place], [address] , [place] tel:[phone] [facility] routine exam (chief complaint) Encounter for exam of eyes and vision w abnormal findingsPresby opia [phone] 7 Zack OD Mickey. [address], [place], [address], [place]. tel:[phone] Referring Provider: Mickey Dixon OD, [address], [place], [address]. tel:[phone] [facility], [address], [place], [place], [address] , [place] tel:[phone] [facility] No Information 7 Oravijaya OD Mickey. [address], [place], [address], [place]. tel:[phone] Referring Provider: Mickey Dixon OD, [address], [place], [address]. tel:[phone] [facility], [address], [place], [place], [address] , [place] tel:[phone] [facility] routine exam (chief complaint) Encounter for exam of eyes and vision w abnormal findingsPresby opia 6 Pranulis OD Xiao. [address], [place], [address], [place]. tel:[phone] Referring Provider: Xiao Garrettcharbeljayden OD, [address], [place], [address]. tel:[phone] [facility], [address], [place], [place], [address] , [place] tel:[phone] [facility] routine exam (chief complaint) Eye & Vision Examination 5 Nicks OD Xiao. [address], [place], [address], [place]. tel:[phone] Referring Provider: Xiao Garrettcharbeljayden OD, [address], [place], [address]. tel:[phone] [facility], [address], [place], [place], [address] , [place] tel:[phone] [facility] Eye & Vision Examination 3 Oravijaya OD Mickey. [address], [place], [address], [place]. tel:[phone] Referring Provider: Mickey Dixon OD, [address], [place], [address]. tel:[phone] Family History Family Member Type Diagnosis Age [...] Information Instructions Date Instruction Additional Infor miriam Encounter for examin ation of eyes and [...] findings Presbyopia, OU Related to Presb yopia Routine Exam, OU - D iscussed diagnosis in detail with patient. New glasses Rx was given today. Related to Routine Exam Routine Examination, OU - Pt ed, srx out today. Related to Routine Examination - 1 yr te Related to Alan glaser Examination Assessments Type Assessment Date No Information Patient Care Teams Name Effective Dates (start - stop) Status Members No Information
== END 2024-03-06 10:17 | disposition home or self-care (01) ==
PROVIDERS: PCP Internal Medicine; Visit Provider Internal Medicine
DX: R03.0 Elevated blood-pressure reading, without diagnosis of hypertension (principal)

== ENCOUNTER 2024-04-01 10:06 | Outpatient (REF) | payer BC, SELFPAY ==
[2024-04-03 21:29] LABS: Lyme Blot 2.97 index
[2024-04-04 15:06] LABS: Lyme Abs Screen POSITIVE
[2024-04-04 19:08] LABS: 18 KD (IgG) Band REACTIVE; 23 KD (IgG) Band NON-REACTIVE; 23 KD (IgM) Band REACTIVE; 28 KD (IgG) Band NON-REACTIVE; 30 KD (IgG) Band NON-REACTIVE; 39 KD (IgM) Band NON-REACTIVE; 39KD (IgG) Band REACTIVE; 41 KD (IgM) Band NON-REACTIVE; 41KD (IgG) Band REACTIVE; 45 KD (IgG) Band NON-REACTIVE; 58 KD (IgG) Band REACTIVE; 66 KD (IgG) Band NON-REACTIVE; 93 KD (IgG) Band REACTIVE; Lyme IgG Blot Interp POSITIVE (NEGATIVE); Lyme IgM Blot Interp NEGATIVE (NEGATIVE)
== END 2024-04-01 10:07 | disposition home or self-care (01) ==
LOC: HO.LAB 10:06
PROVIDERS: PCP Internal Medicine; Visit Provider Internal Medicine
DX: T14.8XXA Other injury of unspecified body region, initial encounter (principal); W57.XXXA Bitten or stung by nonvenomous insect and other nonvenomous arthropods, initial encounter
CPT/HCPCS: 36415; 86617; 86618

== ENCOUNTER 2024-05-24 11:29 | Outpatient (AMB) | payer BC, SELFPAY ==
[2024-05-24 11:38] VITALS: BP 154/92; PULSE 83; O2SAT 98; BMI 31.5
--- NOTE | 2024-05-24 11:38 | A.OFFPC_ITS ---
Vital Signs 05/24/24 11:38 Height 5 ft 9 in Weight 213 lb BMI 31.5 BP 154/92 H Blood Pressure Location Lt brachial Position Sitting Pulse 83 Pulse Source Pulse Oximeter Pulse Oximetry (%) 98 Oxygen Delivery Method Room Air Intake Visit Reasons: Follow Up Allergies No Known Allergies Allergy (Verified 05/24/24 11:38) Tobacco use date assessed: 05/24/24 Dental Screening Dental Screen Date: 05/24/24 Did you have a dental visit in the last 12 months?: No Did you have a dental problem in the last 6 months where you did not have access to dental care?: No Was dental information given to patient?: Patient has dentist HPI Follow Up HPI Details HTN; BP still high and pt agrees to rx [facility] Medical History (Updated 05/24/24 @ 13:59 by Kt Cardoza MD) Obesity Surgical History (Updated 08/26/21 @ 14:22 by ALEX Dawson) History of hernia surgery History of eye surgery Family History (Updated 08/26/21 @ 14:15 by ALEX Dawson) Father Colon cancer Mother No problems noted. Social History Housing: House Alcohol intake: current Alcohol intake frequency: a few times a week Alcohol type: beer Patient Tobacco Use Status: Never used Tobacco Tobacco use type: Cigarette e-Cigarette/Vaping Use: Never Used Second Hand Smoke Exposure: No service: No Current occupational status: employed Cognitive needs: No Hearing needs: No Vision needs: Yes Questionnaire PHQ-9 Over the last 2 weeks, how often have you been bothered by any of the following problems? 1. Little interest or pleasure in doing things: not at all 2. Feeling down, depressed, or hopeless: not at all 3. Trouble falling or staying asleep, or sleeping too much: not at all 4. Feeling tired or having little energy: several days 5. Poor appetite or overeating: not at all 6. Feeling bad about yourself - or that you are a failure or have let yourself or your family down: not at all 7. Trouble concentrating on things, such as reading the newspaper or watching television: not at all 8. Moving or speaking so slowly that other people could have noticed. Or the opposite - being so fidgety or restless that you have been moving around a lot more than usual: not at all 9. Thoughts that you would be better off or of hurting yourself in some way: not at all Total score: 1 Depression Screening Interpretation: Positive Depression Screening Done: Yes 42707 - PHQ-9 Billing: Yes Source: Developed by Drs. Elias Sarabia, Dania Elam, Saurabh Granados and colleagues, with an educational jose from [employer]. Thrive Questionnaire Date Thrive assessed: 05/24/24 I am a: Patient What is your living situation today?: I have a steady place to live Within the past 12 months, did the food you bought not last and you didn't have the money to get more?: Never true Within the past 12 months, did you worry whether your food would run out before you got money to buy more?: Never true Do you have trouble paying for medicines?: No Do you have trouble getting transportation to medical appointments?: No Do you have trouble paying your heating and electricity bill?: No Do you have trouble taking care of your child, family member or friend?: No Do you have trouble with day-to-day activities such as bathing, preparing meals, shopping, managing finances, etc.?: No Are you currently unemployed and looking for a job?: No Are you interested in more education?: No Currently or been in a relationship where the following occur: No concerns reported THRIVE Score: 0 AUDIT C Alcohol Use Questionnaire (AUDIT-C) 1. How often do you have a drink containing alcohol?: 2-3 times a week 2. How many drinks containing alcohol do you have on a typical day when you are drinking?: 1 or 2 3. How often do you have six or more drinks on one occasion?: Never Total Score: 3 ROCK-7 AMB Questionnaire ROCK-7 Date ROCK - 7 assessed: 05/24/24 Feeling nervous, anxious, or on edge: 0 = Not at all Not being able to stop or control worryin = Not at all Worrying too much about different things: 0 = Not at all Trouble relaxin = Not at all Being so restless that it is hard to sit still: 0 = Not at all Becoming easily annoyed or irritable: 0 = Not at all Feeling afraid as if something awful might happen: 0 = Not at all Total ROCK-7 score (0-4 normal; 5-9 mild; 10-14 moderate; 15-21 severe): 0 Source: Developed by Drs. Eilas Sarabia, Dania Elam, Saurabh Granados and colleagues, with an educational jose from [employer]. Review of Systems Const Denies chills, Denies headache(s) and Denies weight loss ENT Denies headache(s) Card Denies chest pain, Denies syncope, Denies irregular heart rhythm and Denies dyspnea Resp Denies chest congestion, Denies cough and Denies dyspnea GI Denies abdominal pain, Denies change in stool character, Denies nausea and Denies vomiting Musc Denies deformity and Denies joint swelling Neuro Denies syncope and Denies headache(s) Physical exam (Primary Care) Vital Signs: Last Vital Signs Pulse 83 05/24/24 11:38 BP 154/92 H 05/24/24 11:38 Pulse Ox 98 05/24/24 11:38 Oxygen Delivery Method Room Air 05/24/24 11:38 BMI result Body Mass Index 31.5 Tobacco/Smoking Status: Tobacco use Status Tobacco use date assessed 05/24/24 05/24/24 11:42 Patient Tobacco Use Status Never used Tobacco 05/24/24 11:42 Tobacco use type Cigarette 05/24/24 11:42 e-Cigarette/Vaping Use Never Used 05/24/24 11:42 PHQ-9: PHQ-9 Score PHQ-9: Total score 1 05/24/24 11:42 Depression Screening Interpretation: Positive Thrive Assessment: Date of Thrive Assessment Date Thrive assessed 05/24/24 05/24/24 11:42 Currently or been in a relationship where the following occur: No concerns reported Const General: cooperative, comfortable, no acute distress and alert Neck Neck: Yes no lymphadenopathy Thyroid: Thyroid normal Resp Effort & Inspection: normal respiratory effort Auscultation: clear to auscultation bilaterally Percussion: percussion normal Cardio Jugular venous distension: no JVD Palpation: normal PMI Rate: regular rate Rhythm: regular rhythm Heart sounds: S1 normal heart sound present and S2 normal heart sound present GI Inspection: Yes normal to inspection Palpation (GI): No hepatosplenomegaly present Skin General skin exam: no rashes or lesions noted Extrem General: Yes no clubbing, cyanosis or edema Coding Level of Care Code Est Pt Level 3 (27372) Diagnoses Hypertension I10 Additional Codes PHQ-9 - 51275 - PHQ-9 Billing: Yes ([id number]) Assessment & Plan Assessment & Plan (1) Hypertension: Code(s): I10 - Essential (primary) hypertension Category: Medical Plan: begin rx Medications: New lisinopril 20 mg PO DAILY 30 tabs 0RF
--- OUTSIDE RECORDS SUMMARY | 2024-05-24 14:25 | XMS_ITS | Continuity of Care Document ---
Author Organization [email or web address] Address [address] [place] [address] Phone Care Team Providers Care Icing Mixer Name Role Phone Hipolitoorfer OD, Mickey Unavailable Unavailable Allergies, Adverse Reactions, Alerts Substance Reaction Status Criticality No Known Allergies Active No Inform ation Medications Medication Instructions Dosage Effective Dates (start - stop) Status Comments meloxicam 7.5 mg tablet Take 1 tablet every day - Active Benadryl 25 mg capsule - Active Ambien 5 mg tablet - Active Procedures Procedure Date Refraction EST. [...] Diagnoses Date Provider Providers Copied on Encounter [facility], [address], [place], [place], [id number] , [place] tel: [phone] [facility] No Information 4 Zack OD Mickey. [address], [place], [address], [place]. tel:[phone] Referring Provider: Mickey Dixon OD, [address], [place], [address]. tel:[phone] [facility], [address], [place], [place], [id number] , [place] tel: [phone] [facility] routine eye exam (chief complaint) Encounter for exam of eyes and vision w abnormal findingsPresby opia 4 Zack OD Mickey. [address], [place], [address], [place]. tel:[phone] Referring Provider: Mickey Dixon OD, [address], [place], [address]. tel:[phone] [facility], [address], [place], [place], [id number] , [place] tel:[phone] [facility] routine exam (chief complaint) Encounter for exam of eyes and vision w abnormal findingsPresby opia 3 Zack OD Mickey. [address], [place], [address], [place]. tel:[phone] Referring Provider: Mickey Dixon OD, [address], [place], [address]. tel:[phone] [facility], [address], [place], [place], [id number] , [place] tel:[phone] [facility] routine exam (chief complaint) Encounter for exam of eyes and vision w abnormal findingsPresby opia 1 Zack OD Mickey. [address], [place], [address], [place]. tel:[phone] Referring Provider: Mickey Dixon OD, [address], [place], [address]. tel:[phone] [facility], [address], [place], [place], [id number] , [place] tel:[phone] [facility] routine exam (chief complaint) Encounter for exam of eyes and vision w abnormal findingsPresby opia [phone] 0 Zack OD Mickey. [address], [place], [address], [place]. tel:[phone] Referring Provider: Mickey Dixon OD, [address], [place], [address]. tel:[phone] [facility], [address], [place], [place], [address] , [place] tel:[phone] [facility] routine exam (chief complaint) Encounter for exam of eyes and vision w abnormal findingsPresby opia 9 Zack OD Mickey. [address], [place], [address], [place]. tel:[phone] Referring Provider: Mickey Dixon OD, [address], [place], [address]. tel:[phone] [facility], [address], [place], [place], [address] , [place] tel:[phone] [facility] No Information 9 Zack OD Mickey. [address], [place], [address], [place]. tel:[phone] Referring Provider: Mickey Dixon OD, [address], [place], [address]. tel:[phone] [facility], [address], [place], [place], [id number] , [place] tel:[phone] [facility] routine exam (chief complaint) Encounter for exam of eyes and vision w abnormal findingsPresby opia [phone] Zack OD Mickey. [address], [place], [address], [place]. tel:[phone] Referring Provider: Mickey Dixon OD, [address], [place], [address]. tel:[phone] [facility], [address], [place], [place], [id number] , [place] tel:[phone] [facility] No Information 7 Oravijaya OD Mickey. [address], [place], [address], [place]. tel:[phone] Referring Provider: Mickey Dixon OD, [address], [place], [address]. tel:[phone] [facility], [address], [place], [place], [id number] , [place] tel:[phone] [facility] routine exam (chief complaint) Encounter for exam of eyes and vision w abnormal findingsPresby opia 6 Pranulis OD Xiao. [address], [place], [address], [place]. tel:[phone] Referring Provider: Xiao Garrettcharbeljayden OD, [address], [place], [address]. tel:[phone] [facility], [address], [place], [place], [address] , [place] tel:[phone] [facility] routine exam (chief complaint) Eye & Vision Examination 5 Nicks OD Xiao. [address], [place], [address], [place]. tel:[phone] Referring Provider: Xiao Garrettcharbeljayden OD, [address], [place], [address]. tel:[phone] [facility], [address], [place], [place], [address] , [place] tel:[phone] [facility] Eye & Vision Examination 3 Oravijaya OD Mickey. [address], [place], [address], [place]. tel:[phone] Referring Provider: Mickey Dixon OD, [address], [place], [address]. tel:[phone] Family History Family Member Type Diagnosis Age At Onset Mother Problem (finding) diabetes omari toshias in first degree relative Payers Payer name Insurance type Covered green party ID Authoriza tion(s) No Information Social [...] findings Presbyopia, OU Related to Presb yopia Presbyopia, OU Related to Presb yopia Encounter [...]
--- OUTSIDE RECORDS SUMMARY | 2024-05-24 14:25 | XMS_ITS | Patient Health Record ---
Author Organization [facility] Address [address] [place] [address] Care Team Providers Care Stack Yield Engineer Name Role Phone Kt Cardoza MD Primary Care Provider Alannaa Elias Adams Unavailable [phone] REASON FOR REFERRAL No Information MEDICATIONS Medication SIG (Take, Route, Fr equency, Duration) Notes Start Date End Date Status MoviPrep 100 GM as directed Orally a s directed for 1 dose 03/15/2014 Active SOCIAL HISTORY Sex Assigned At : Social History Observation Description Sex Assigned At Unknown PROBLEMS Problem Type ICD Code Onset Dates Problem Status W/U Status Risk SNOMED Code Notes Problem Other specified pre-operative examination (V72.83) Active confirmed Pre-surgery evaluation (146204148) Problem Colon cancer screening (V76.51) Active confirmed Colon cancer screening (891404109) Problem Family history of colorectal cancer (V16.0) Active confirmed Family histor y of colorectal cancer (9638890543126 ) PLAN OF TREATMENT Future Test Test Name Order Date COLONOSCOPY 03/15/2014 Insurance Providers Payer Name Payer Address Payer Phone Subscriber Number Group Number Insured Name Patient Relationship to Insured Coverage Start Date Coverage End Date [facility] [address] [place], [place] [id number] FRANCIE KIM Self - patient is the insured MEDICAL (GENERAL) HISTORY Medical History History ICD Code Denies [place],DM,CVA,Lung disease,renal dise ase Reports negative colonoscopy in approx. 06/1998--neg small bowel series Surgical History Surgery Date(Month/Year) Hernia repair-right inguinal-Dr. Babin 20 14 deviated septum repair
== END 2024-05-24 12:02 | disposition home or self-care (01) ==
PROVIDERS: PCP Internal Medicine; Visit Provider Internal Medicine
DX: I10 Essential (primary) hypertension (principal)

== ENCOUNTER → 2024-05-24 11:29 | Outpatient (BNVA) | payer BC, SELFPAY | PROVIDERS: PCP Internal Medicine; Visit Provider Internal Medicine | DX: I10 Essential (primary) hypertension (principal) | CPT/HCPCS: 96127 ==